=== PATIENT | male | born 1965 | race Caucasian/White ===

== ENCOUNTER 2017-03-01 13:27 | Inpatient (IN) | payer MEDICARE, MEDICAID ==
[~2017-03-01] VITALS: Ht 185.4 cm; Wt 60.8 kg
[2017-03-01] MEDS ORDERED: SODIUM CHLORIDE 0.9% 1,000 ML IV ONE (17:19)
[2017-03-01] MEDS ORDERED: CLINDAMYCIN 600MG IV 50 ML IV ONE (17:30)
[2017-03-01] MEDS ORDERED: LORazepam 0.5 MG TAB PO PRN (18:45)
[2017-03-01] MEDS ORDERED: ACETAMINOPHEN 500 MG TAB PO PRN (18:45)
[2017-03-01] MEDS ORDERED: LACTULOSE 20Gm/30ML SOLN PO PRN (18:45)
[2017-03-01] MEDS ORDERED: PROMETHAZINE HCL 25 MG/ML 1ML IV PRN (18:45)
[2017-03-01] MEDS: SODIUM CHLORIDE 0.9% 1,000 ML IV SCH ×2 (19:36→21:57)
[2017-03-01 20:27] LABS: Basophils # (auto) 0 uL; Basophils % (auto) 0.2 % (0.0-2.0); CONDITION AutoValidated; Eosinophils # (auto) 0.1 uL; Eosinophils % (auto) 1.6 % (0.0-7.0); Hemoglobin 14.7 g/dL (13.5-17.5); Lymphocytes # (auto) 1.5 uL; Mean Corpuscular Hemoglobin 29.4 pg (28.0-32.0); Mean Corpuscular Hgb Conc. 34.2 g/dL (32.0-36.0); Mean Corpuscular Volume 86.1 fL (80.0-100.0); Mean Platelet Volume 8.6 fL (7.4-10.4); Monocytes # (auto) 0.6 uL; Monocytes % (auto) 7.8 % (0.0-12.0); Neutrophils # (auto) 5.6 uL; Neutrophils % (auto) 71.4 % (37.0-80.0); Platelet Count (auto) 313 10^3/uL (140-450); Red Cell Distribution Width 13.5 % (11.6-16.0); White Blood Cell 7.8 10^3/uL (4.4-10.8)
[2017-03-01] MEDS: HYDROcodone-ACET 5/325MG TAB PO PRN ×2 (20:32→23:30)
[2017-03-01 21:03] LABS: Albumin 3.6 g/dL (3.4-5.0); BUN/Creatinine Ratio 25.6; Bilirubin, Total 0.6 mg/dL (0.2-1.0); Calcium 8.1 mg/dL (8.5-10.1); Potassium 3.9 mmol/L (3.5-5.1); Total Protein 6.8 g/dL (6.4-8.2)
[2017-03-01 21:20] VITALS: BP 127/89
[2017-03-01] MEDS: CLINDAMYCIN 600MG IV 50 ML IV SCH (22:42)
[2017-03-01] MEDS: TEMAZEPAM 15 MG CAP PO PRN (23:29)
[2017-03-02] VITALS (7 sets, daily range): BP systolic 107–128; BP diastolic 70–78
[2017-03-02] MEDS ORDERED: AMI25T GT (04:43)
[2017-03-02] MEDS: HYDROcodone-ACET 5/325MG TAB PO PRN ×2 (04:55→04:56)
[2017-03-02] MEDS: CLINDAMYCIN 600MG IV 50 ML IV SCH ×3 (06:07→22:19)
[2017-03-02 06:41] LABS: Cholesterol 81 mg/dL (< 200); HDL Cholesterol 19 mg/dL (40-59); LDL Cholesterol 46 mg/dL (< 100); Triglycerides 136 mg/dL (< 150)
[2017-03-02] MEDS ORDERED: MIRT30TA PO (08:11)
[2017-03-02] MEDS: MORPHINE SULF INJ 2 MG/ML SYRINGE 1ML IV PRN ×3 (08:20→19:35)
[2017-03-02] MEDS: cefTRIAXone 1GM/50ML D5W 50 ML IV SCH (09:22)
[2017-03-02] MEDS: ENOXAPARIN SOD 40 MG/0.4 ML SYRINGE SC SCH (09:23)
[2017-03-02 09:36] LABS: Urine Bilirubin Negative (Negative); Urine Blood Negative /uL (Negative); Urine Color Yellow (Yellow); Urine Glucose Normal (Normal); Urine Ketone Negative (Negative); Urine Nitrite Negative (Negative); Urine RBC <1 /hpf (0 - 3); Urine Urobilinogen Normal (Negative); Urine pH 6.5 (5.0-8.0)
[2017-03-02] MEDS: SODIUM CHLORIDE 0.9% 1,000 ML IV SCH (14:41)
[2017-03-02] MEDS: TEMAZEPAM 15 MG CAP PO PRN (22:19)
[2017-03-03] VITALS (7 sets, daily range): BP systolic 102–152; BP diastolic 54–77
[2017-03-03] MEDS: SODIUM CHLORIDE 0.9% 1,000 ML IV SCH ×3 (00:41→20:41)
[2017-03-03] MEDS: CLINDAMYCIN 600MG IV 50 ML IV SCH ×3 (05:46→21:44)
[2017-03-03] MEDS: cefTRIAXone 1GM/50ML D5W 50 ML IV SCH (08:46)
[2017-03-03] MEDS: ENOXAPARIN SOD 40 MG/0.4 ML SYRINGE SC SCH (09:34)
[2017-03-03] MEDS ORDERED: MULTIPLE VITAMINS W/ MINERALS TAB PO ONE (15:00)
[2017-03-03] MEDS: MORPHINE SULF INJ 2 MG/ML SYRINGE 1ML IV PRN ×2 (16:42→20:58)
[2017-03-03] MEDS: TEMAZEPAM 15 MG CAP PO PRN (21:44)
[2017-03-03] MEDS: ASCORBIC ACID 500 MG TAB PO SCH (21:44)
[2017-03-04 05:00] VITALS: BP 102/71
[2017-03-04] MEDS: SODIUM CHLORIDE 0.9% 1,000 ML IV SCH (05:35)
[2017-03-04] MEDS: CLINDAMYCIN 600MG IV 50 ML IV SCH ×2 (05:35→14:03)
[2017-03-04 09:18] VITALS: BP 102/74
[2017-03-04] MEDS: cefTRIAXone 1GM/50ML D5W 50 ML IV SCH (09:49)
[2017-03-04] MEDS: HYDROcodone-ACET 5/325MG TAB PO PRN (09:50)
[2017-03-04] MEDS: ASCORBIC ACID 500 MG TAB PO SCH (09:50)
[2017-03-04] MEDS: ENOXAPARIN SOD 40 MG/0.4 ML SYRINGE SC SCH (09:50)
[2017-03-04] MEDS ORDERED: MULTIPLE VITAMINS W/ MINERALS TAB PO SCH (10:00)
[2017-03-04 13:05] VITALS: BP 102/74
[2017-03-04 13:18] VITALS: BP 103/56
== END 2017-03-04 15:55 | disposition home or self-care (01) | DRG 603 ==
LOC: ER 13:27 → OVERFLOW 13:28 → EAST 21:00
PROVIDERS: ADMIT Internal Medicine; ATTEND Internal Medicine
DX: L03.115 Cellulitis of right lower limb (principal); L03.116 Cellulitis of left lower limb; Z80.1 Family history of malignant neoplasm of trachea, bronchus and lung; Z87.891 Personal history of nicotine dependence; Z88.0 Allergy status to penicillin
CPT/HCPCS: 36415; 73600; 80053; 80061; 80307; 81001; 85025; 85652; 87040; 87081; 94761; 96365; J0696; J3490

== ENCOUNTER 2017-09-03 09:57 | Emergency (ER) | payer MEDICAID, MEDICARE ==
[~2017-09-03] VITALS: Ht 185.4 cm; Wt 90.7 kg
[~2017-09-03 09:57] MED LIST: AMI25T GT; MIRT30TA PO
[2017-09-03 10:15] VITALS: BP 128/88
== END 2017-09-03 11:35 | disposition home or self-care (01) ==
LOC: ER 09:57
DX: G44.209 Tension-type headache, unspecified, not intractable (principal); R04.0 Epistaxis; Z88.0 Allergy status to penicillin; Z90.49 Acquired absence of other specified parts of digestive tract
CPT/HCPCS: 70450

== ENCOUNTER 2023-03-12 08:37 | Emergency (ER) | payer OTHER, MEDICAID ==
[~2023-03-12] VITALS: Ht 185.4 cm; Wt 95.3 kg
[~2023-03-12 08:37] MED LIST changes: -AMI25T GT; +AMIT-118 GT; +MIRT-94 PO; -MIRT30TA PO
[2023-03-12] MEDS ORDERED: CLINDAMYCIN HCL 150 MG CAP PO ONE (09:45)
[2023-03-12] MEDS ORDERED: levoFLOXacin 750MG 150 ML IV ONE (09:45)
[2023-03-12] MEDS ORDERED: CLIN300C70 PO (10:07)
[2023-03-12] MEDS ORDERED: LEVO500T91 PO (10:07)
[2023-03-12 10:52] VITALS: BP 124/82
== END 2023-03-12 10:58 | disposition home or self-care (01) ==
LOC: ER 08:37
DX: L03.211 Cellulitis of face (principal); Z98.890 Other specified postprocedural states; Z88.0 Allergy status to penicillin; Z79.899 Other long term (current) drug therapy
CPT/HCPCS: 96365; 99284; J1956